=== PATIENT | male | born 1985 | race Caucasian/White ===

== ENCOUNTER 2019-07-23 14:36 | Emergency (ER) | payer MEDICAID ==
[~2019-07-23] VITALS: Ht 188 cm; Wt 70.0 kg
--- NOTE | 2019-07-23 15:50 | NUR ---
PT SLEEPING, BREATHING EVEN AND UNLABORED
--- NOTE | 2019-07-23 17:23 | NUR ---
PT AWAKE AND ASKING WHAT IS GOING ON. EXPLAINED TO HIM ONCE HE HAS SOBERED UP ENOUGH TO BE SAFE HE WILL BE DISCHARDED. ORDERED DINNER TRAY
[2019-07-23 17:25] VITALS: BP 114/80
--- NOTE | 2019-07-23 18:24 | NUR ---
PT WALKING WITH STEADY GAIT. DISCHARGE PAPERS GIVEN. AMBULATED TO DISCHARGE WINDOW WITHOUT ASSISTANCE
== END 2019-07-23 18:28 | disposition home or self-care (01) ==
LOC: ED 18:22
DX: F10.220 Alcohol dependence with intoxication, uncomplicated (principal); Z72.9 Problem related to lifestyle, unspecified; Z59.0 Homelessness; Y90.9 Presence of alcohol in blood, level not specified
CPT/HCPCS: 99283

== ENCOUNTER 2019-07-26 20:54 | Emergency (ER) | payer MEDICAID ==
[~2019-07-26] VITALS: Ht 195.6 cm; Wt 65.0 kg
[2019-07-26 20:57] VITALS: BP 142/88
== END 2019-07-26 21:08 | disposition home or self-care (01) ==
LOC: ED 21:02
DX: S01.511D Laceration without foreign body of lip, subsequent encounter (principal); Z72.9 Problem related to lifestyle, unspecified; F12.20 Cannabis dependence, uncomplicated; F17.200 Nicotine dependence, unspecified, uncomplicated; X58.XXXD Exposure to other specified factors, subsequent encounter
CPT/HCPCS: 99283

== ENCOUNTER 2019-07-27 00:51 | Emergency (ER) | payer MEDICAID ==
[~2019-07-27] VITALS: Ht 182.9 cm; Wt 68.0 kg
[2019-07-27 00:53] VITALS: BP 132/89
--- NOTE | 2019-07-27 01:03 | NUR ---
PTS ONLY COMPLAINT AT THIS TIME IS HE DOESNT HAVE ANY CRACKERS.
--- NOTE | 2019-07-27 01:22 | NUR ---
PT REFUSING TO LEAVE AFER BEING GIVEN DC PAPERWORK. PT SCREAMING AND CURSING. SECURITY CALLED. SECURITY AT BEDSIDE ASSISTING PATIENT OUT.
== END 2019-07-27 01:24 | disposition home or self-care (01) ==
LOC: ED 01:04
DX: F10.129 Alcohol abuse with intoxication, unspecified (principal); Z72.9 Problem related to lifestyle, unspecified; Y90.0 Blood alcohol level of less than 20 mg/100 ml
CPT/HCPCS: 99283

== ENCOUNTER 2020-01-04 05:04 | Emergency (ER) | payer MEDICAID ==
[~2020-01-04] VITALS: Ht 195.6 cm; Wt 68.2 kg
--- NOTE | 2020-01-04 06:05 | NUR ---
PT TO XRAY.
[2020-01-04 06:21] VITALS: BP 121/75
[2020-01-04 06:31] LABS: BASOPHILS # (AUTO) 0.02 x10^3/uL (0-0.1); BASOPHILS % (AUTO) 0 % (0-1); EOSINOPHILS # (AUTO) 0.03 x10^3/uL (0-0.4); EOSINOPHILS % (AUTO) 1 % (1-7); LYMPHOCYTES # (AUTO) 1.65 x10^3/uL (1-3.4); LYMPHOCYTES % (AUTO) 26 % (22-44); MD NO; MEAN CORPUSCULAR HEMOGLOBIN 30.6 pg (27.5-34.5); MEAN CORPUSCULAR HGB CONC 33.3 g/dL (33.2-36.2); MEAN CORPUSCULAR VOLUME 92.1 fL (81-97); MEAN PLATELET VOLUME 6.4 fL (7.4-10.4); MONOCYTES # (AUTO) 0.66 x10^3/uL (0.2-0.8); MONOCYTES % (AUTO) 10 % (2-9); NEUTROPHILS # (AUTO) 4.11 x10^3/uL (1.8-6.8); NEUTROPHILS % (AUTO) 64 % (42-75); PLATELET COUNT 266 x10^3/uL (130-400); RED BLOOD COUNT 3.96 x10^6/uL (4.38-5.82); RED CELL DISTRIBUTION WIDTH 14.8 % (9.4-14.8)
[2020-01-04 06:39] LABS: ALBUMIN 2.7 g/dL (3.4-5.0); ANION GAP 7 mmol/L (5-15); CALCIUM 8.5 mg/dL (8.5-10.1); CHLORIDE 101 mmol/L (98-107); CREATININE 0.55 mg/dL (0.7-1.3)
--- NOTE | 2020-01-04 06:51 | NUR ---
BEDSIDE REPORT FROM ERIC HERNANDEZ, PT AMBULATED TO PHONE WITH STEADY GAIT TO CALL SIGNIFIGANT OTHER
--- NOTE | 2020-01-04 06:51 | NUR ---
REPORT GIVEN TO GOPAL HERNANDEZ.
[2020-01-04] MEDS ORDERED: NEOSPORIN OINT. PKT 1 PACKET ONE (07:26)
== END 2020-01-04 07:31 | disposition home or self-care (01) ==
LOC: ED 05:27
DX: L03.116 Cellulitis of left lower limb (principal); F17.210 Nicotine dependence, cigarettes, uncomplicated
CPT/HCPCS: 36415; 80048; 82040; 85025; 99285

== ENCOUNTER 2021-05-13 23:13 | Emergency (ER) | payer MEDICAID ==
[~2021-05-13] VITALS: Ht 185.4 cm; Wt 80.0 kg
[2021-05-13 23:15] VITALS: BP 128/83
--- NOTE | 2021-05-13 23:33 | NUR ---
PT REFUSED LEAVE MASK ON AND IS BECOMING INCREASINGLY AGRESSIVE TO STAFF. SECURITY CALLED TO TALKED TO PT. PT REFUSED TO LISTEN AND WALKED OUT OF ER WITH A STEADY GAIT
== END 2021-05-13 23:43 | disposition left against medical advice (07) ==
LOC: ED 23:20
DX: F10.129 Alcohol abuse with intoxication, unspecified (principal); Y90.9 Presence of alcohol in blood, level not specified; Z53.21 Procedure and treatment not carried out due to patient leaving prior to being seen by health care provider

== ENCOUNTER 2021-05-15 00:42 | Emergency (ER) | payer MEDICAID ==
[~2021-05-15] VITALS: Ht 195.6 cm; Wt 67.3 kg
[2021-05-15 00:59] VITALS: BP 130/86
--- NOTE | 2021-05-15 01:11 | NUR ---
PT LEFT LOBBY TO TRY TO DRINK ETOH OUTSIDE. PT LEFT AFTER HE WAS TALKED TO BY SECURITY
== END 2021-05-15 01:13 | disposition left against medical advice (07) ==
LOC: ED 00:42
DX: M25.561 Pain in right knee (principal); Z53.21 Procedure and treatment not carried out due to patient leaving prior to being seen by health care provider